=== PATIENT | female | born 1980 ===

== ENCOUNTER 2016-10-17 07:26 | Emergency (ER) | payer MEDICAID ==
[2016-10-17 07:34] VITALS: BP 134/55; PULSE 80; RESP 16; TEMP 98.5
[2016-10-17 07:35] VITALS: BMI 42.3
--- NOTE | 2016-10-17 08:40 | ED PDOC ---
HPI: CCC, URI, Sore Throat Time Seen by Provider: 10/17/16 07:48 Chief Complaint (Nursing): Cough, Cold, Congestion Chief Complaint (Provider): Cough, Cold, Congestion History Per: Patient History/Exam Limitations: no limitations Onset/Duration Of Symptoms: Days (x2 days) Current Symptoms Are (Timing): Still Present Additional Complaint(s): 36 y/o female presents to the emergency department with a complaint of a dry cough, congestion, chills, body aches, and fever x2 days. Denies chest pain, difficulty breathing, sore throat, any sick contact, recent travels, or further medical complaints. Past Medical History Reviewed: Historical Data, Nursing Documentation, Vital Signs Vital Signs: Last Vital Signs Temp 98.5 F 10/17/16 07:34 Pulse 80 10/17/16 07:34 Resp 16 10/17/16 07:34 BP 134/55 L 10/17/16 07:34 Pulse Ox - Medical History PMH: No Chronic Diseases - Surgical History Surgical History: No Surg Hx - Family History Family History: States: Diabetes, Hypertension - Social History Current smoker - smoking cessation education provided: No Alcohol: Social Drugs: Denies - Home Medications Home Medications: Ambulatory Orders Medication Instructions Recorded Methylprednisolone [Medrol Dose 4 mg PO DAILY #21 mg 12/27/15 Pack (21 tabs)] Promethazine HCl/Codeine 5 ml PO HS #80 ml 12/27/15 [Prometh-Codein 6.25-10 mg/5 ml] Benzonatate [Tessalon Perle] 100 mg PO Q8 PRN #30 capsule 02/20/16 Fluticasone Propionate [Flonase] 2 spr NS DAILY PRN #1 bottle 02/20/16 Naproxen [Naprosyn] 500 mg PO BID PRN #30 tab 02/20/16 Ibuprofen [Motrin] 600 mg PO Q6 #20 tab 10/17/16 - Allergies Allergies/Adverse Reactions: Allergies Allergy/AdvReac Type Severity Reaction Status Date / Time No Known Allergies Allergy Verified 10/17/16 07:38 Review of Systems ROS Statement: Except As Marked, All Systems Reviewed And Found Negative Constitutional: Positive for: Fever, Chills, Other (Body aches) ENT: Positive for: Nose Congestion. Negative for: Throat Pain Cardiovascular: Negative for: Chest Pain Respiratory: Positive for: Cough (Dry). Negative for: Other (Difficulty breathing) Physical Exam - Reviewed Nursing Documentation Reviewed: Yes Vital Signs Reviewed: Yes - Physical Exam Appears: Positive for: Non-toxic, No Acute Distress Head Exam: Positive for: ATRAUMATIC, NORMAL INSPECTION, NORMOCEPHALIC Skin: Positive for: Normal Color, Warm, Dry Eye Exam: Positive for: Normal appearance ENT: Positive for: Normal ENT Inspection. Negative for: Sinus Pain/Drainage, Nasal Congestion, Pharyngeal Erythema, Tonsillar Exudate, Tonsillar Swelling Neck: Positive for: Normal, Supple Cardiovascular/Chest: Positive for: Regular Rate, Rhythm. Negative for: Murmur Respiratory: Positive for: Normal Breath Sounds. Negative for: Accessory Muscle Use, Wheezing, Respiratory Distress Neurologic/Psych: Positive for: Alert, Oriented (x3) Medical Decision Making Medical Decision Making: Time: 08:00 Initial impression: Upper respiratory infection Initial plan: --Patient instructed for symptomatic care at home. Time: 08:47 Patient is medically stable, and requires no further treatment in the ED at this time. Patient will be discharged home with Rx for Motrin 600 mg. Counseling was provided and all questions were answered regarding diagnosis and need for follow up with Dr. Eloy Yip MD. There is agreement to discharge plan. Return if symptoms persist or worsen. Clinical Impression: URI, acute Scribe Attestation: Documented by Faith Fair, acting as a scribe for John Belle MD. Provider Scribe Attestation: All medical record entries made by the Scribe were at my direction and personally dictated by me. I have reviewed the chart and agree that the record accurately reflects my personal performance of the history, physical exam, medical decision making, and the department course for this patient. I have also personally directed, reviewed, and agree with the discharge instructions and disposition. Disposition - Clinical Impression Clinical Impression: URI, acute - Patient ED Disposition Is Patient to be Admitted: No Doctor Will See Patient In The: Office Counseled Patient/Family Regarding: Studies Performed, Diagnosis, Need For Followup - Disposition Referrals: Eloy Yip MD [Family Provider] - Disposition: Routine/Home Disposition Time: 08:47 Condition: GOOD Additional Instructions: Take motrin for fever and pain. Follow up with your PCP in 2-3 days. Prescriptions: Ibuprofen [Motrin] 600 mg PO Q6 #20 tab Instructions: Upper Respiratory Infection (ED) Forms: [facility] ED School/Work Excuse
== END 2016-10-17 08:51 | disposition home or self-care (01) ==
LOC: H.ER 07:26
DX: J06.9 Acute upper respiratory infection, unspecified (principal)

== ENCOUNTER 2017-01-03 16:54 | Emergency (ER) | payer MEDICAID ==
[2017-01-03 16:54] VITALS: BMI 42.3
[2017-01-03 17:02] VITALS: TEMP 98.6; O2SAT 99
--- NOTE | 2017-01-03 17:32 | ED PDOC ---
HPI: Chest Pain Time Seen by Provider: 01/03/17 17:05 Chief Complaint (Nursing): Chest Pain Chief Complaint (Provider): Chest Pain History Per: Patient History/Exam Limitations: no limitations Onset/Duration Of Symptoms: Hrs Current Symptoms Are (Timing): Still Present Quality: "Pain" Associated Symptoms: Nausea. denies: Dyspnea Exacerbating Factors: Deep Breathing Alleviating Factors: None Additional Complaint(s): Sima Mccain, a 36 year old female, presents to the ED complaining of chest pain. 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 She reports that the pain is worse with deep inspiration. As per patient, she has had a loss of appetite all day. She reports that she tried to eat about an hour and a half ago and feels like that made the pain worse and also made her nauseous. The patient further states that yesterday around noon she had a bad argument and had been feeling stressed ever since. Denies, cough, fever, leg swelling, abdominal pain. Of note: Patient states that she has reflux intermittently and takes medications as needed though she has not tried medication today PMD: Randy Buitrago Past Medical History Reviewed: Historical Data, Nursing Documentation, Vital Signs Vital Signs: Last Vital Signs Temp 98.6 F 01/03/17 16:58 Pulse 73 01/03/17 16:58 Resp 16 01/03/17 16:58 BP 133/62 01/03/17 16:58 Pulse Ox 99 01/03/17 17:49 - Medical History PMH: Anemia - Family History Family History: States: Diabetes, Hypertension Other Family History: Cancer, Parkinson's disease - Social History Current smoker - smoking cessation education provided: No Ex-Smoker (has not smoked in the last 12 months): No Alcohol: Social Drugs: Denies - Home Medications Home Medications: Ambulatory Orders Medication Instructions Recorded Dicyclomine [Bentyl] 20 mg PO BID PRN #30 tab 01/03/17 Famotidine [Pepcid] 40 mg PO DAILY PRN #14 tab 01/03/17 - Allergies Allergies/Adverse Reactions: Allergies Allergy/AdvReac Type Severity Reaction Status Date / Time No Known Allergies Allergy Verified 01/03/17 17:35 Review of Systems ROS Statement: Except As Marked, All Systems Reviewed And Found Negative Constitutional: Negative for: Fever Cardiovascular: Positive for: Chest Pain Respiratory: Negative for: Cough, Shortness of Breath Gastrointestinal: Positive for: Nausea. Negative for: Abdominal Pain Physical Exam - Reviewed Nursing Documentation Reviewed: Yes Vital Signs Reviewed: Yes - Physical Exam Appears: Positive for: Non-toxic, In Acute Distress (mild painful) Head Exam: Positive for: ATRAUMATIC, NORMOCEPHALIC Skin: Positive for: Warm, Dry Eye Exam: Positive for: EOMI, PERRL ENT: Positive for: Pharynx Is (clear), Other (mucus membranes moist) Neck: Positive for: Trachea Midline Cardiovascular/Chest: Positive for: Regular Rate, Rhythm, Chest Non Tender. Negative for: Edema, Murmur Respiratory: Positive for: Normal Breath Sounds. Negative for: Accessory Muscle Use, Rales, Rhonchi, Wheezing, Respiratory Distress Gastrointestinal/Abdominal: Positive for: Bowel Sounds, Soft. Negative for: Tenderness, Mass, Distended, Guarding Back: Positive for: Normal Inspection. Negative for: Decreased ROM Extremity: Positive for: Normal ROM. Negative for: Deformity Lymphatic: Negative for: Adenopathy Neurologic/Psych: Positive for: Alert. Negative for: Motor/Sensory Deficits - Laboratory Results Result Diagrams: 01/03/17 17:50 01/03/17 17:50 - ECG ECG Rhythm: Positive for: Normal QRS (69 bpm), Normal ST Segment, Sinus Rhythm O2 Sat by Pulse Oximetry: 99 (RA) Pulse Ox Interpretation: Normal - Radiology X-Ray: Interpreted by Md X-Ray Interpretation: No Acute Disease Medical Decision Making Medical Decision Makin Initial Impression 36 y/o female presenting with chest pain Differentials including but not limited too: Stress, Reflux, Gastritis, Costochondritis, Pancreatitis Initial Plan: * CMP * Lipase * Thyroid stimulating hormone * Troponin 1 * Upreg * Udip * CBC * Chest x-ray * Bentyl 20mg PO * Lidocaine 2% viscous 10mL PO * Reevaluation 630p On reevaluation pt feels better. No emergently significant lab abnormalities. DW pt findings and plan of care. Scribe Attestation Documented by Silke Rodriguez acting as a scribe for Kasey Nam MD. Provider Attestation All medical record entries made by the Scribe were at my direction and personally dictated by me. I have reviewed the chart and agree that the record accurately reflects my personal performance of the history, physical exam, medical decision making, and the department course for this patient. I have also personally directed, reviewed, and agree with the discharge instructions and disposition. Disposition - Clinical Impression Clinical Impression: Chest pain Counseled Patient/Family Regarding: Studies Performed, Diagnosis, Need For Followup, Rx Given - Disposition Disposition: Routine/Home Disposition Time: 18:45 Condition: IMPROVED Additional Instructions: FOLLOW UP WITH YOUR DOCTOR THIS WEEK FOR REEVALUATION Prescriptions: Dicyclomine [Bentyl] 20 mg PO BID PRN #30 tab PRN Reason: abdominal pain Famotidine [Pepcid] 40 mg PO DAILY PRN #14 tab PRN Reason: reflux Instructions: Noncardiac Chest Pain (ED), Gastroesophageal Reflux Disease (ED) , Stress (ED) Forms: [facility] ED School/Work Excuse
[2017-01-03 17:59] LABS: BASO % 0.4 % (0.0-2.0); EOS # 0.1 K/uL (0.0-0.7); EOS % 0.5 % (0.0-4.0); LYMPH # 1.5 K/uL (1.0-4.3); LYMPH % 13.5 % (20.0-40.0); MEAN CELL VOLUME 82.6 fl (81.0-99.0); MEAN CORPUSCULAR HEMOGLOBIN 26.5 pg (27.0-31.0); MEAN PLATELET VOLUME 8.6 fl (7.2-11.7); MONO # 0.7 K/uL (0.0-0.8); MONO % 6.4 % (0.0-10.0); NEUT # 8.8 K/uL (1.8-7.0); NEUT % 79.2 % (50.0-75.0); RED CELL DISTRIBUTION WIDTH 13.9 % (11.5-14.5); WHITE BLOOD COUNT 11.1 K/uL (4.8-10.8)
[2017-01-03 18:12] LABS: BILIRUBIN,TOTAL 0.7 mg/dl (0.2-1.3); CALCIUM 9.2 mg/dL (8.4-10.2); CARBON DIOXIDE 23 mmol/L (22-30); CHLORIDE 104 mmol/L (98-107); GFR AFRICAN-AMERICAN > 60; GLUCOSE,RANDOM 90 mg/dL (65-105); LIPASE 149 U/L (23-300); SODIUM 140 mmol/l (132-148); TOTAL PROTEIN 8.5 G/DL (6.3-8.2)
[2017-01-03 18:15] LABS: ALB/GLOB RATIO 1.3 (1.0-2.1); ALKALINE PHOSPHATASE 73 U/L (38-126); ALT/SGPT 42 U/L (9-52); AST/SGOT 36 U/L (14-36); BLOOD UREA NITROGEN 19 mg/dl (7-17); POTASSIUM 4.1 MMOL/L (3.6-5.0)
[2017-01-03 18:42] LABS: THYROID STIMULATING HORMONE 1.02 mIU/ML (0.46-4.68)
--- NOTE | 2017-01-03 18:48 | RAD ---
HISTORY: cp COMPARISON: No prior. TECHNIQUE: Chest PA and lateral FINDINGS: LUNGS: No active pulmonary disease. PLEURA: No significant pleural effusion identified. No pneumothorax apparent. CARDIOVASCULAR: Normal. OSSEOUS STRUCTURES: No significant abnormalities. VISUALIZED UPPER ABDOMEN: Normal. OTHER FINDINGS: None. IMPRESSION: No acute cardiopulmonary disease appreciated.
[2017-01-03 19:01] VITALS: BP 134/75; PULSE 75; RESP 18
== END 2017-01-03 19:10 | disposition home or self-care (01) ==
LOC: H.ER 16:54
DX: R07.9 Chest pain, unspecified (principal)